=== PATIENT | female | born 1995 | race Caucasian/White ===

== ENCOUNTER 2017-03-08 16:29 | Inpatient (IN) | payer OTHER ==
[2017-03-08 17:30] LABS: % IMMATURE GRANULYOCYTES 0.4 % (0.0-1.1); ABSOLUTE IMMATURE GRANULOCYTES 0.01 10^3/uL (0.00-0.10); ADD DIFF? NO; ADD MORPH? NO; ADD SCAN? NO; ATYPICAL LYMPHOCYTE FLAG 80 (0-99); FRAGMENT RBC FLAG 0 (0-99); HEMOGLOBIN 15.9 g/dL (12.6-16.3); LEFT SHIFT FLG 0 (0-99); LIPEMIA HEMOLYSIS FLAG 90 (0-99); MEAN CELL HEMOGLOBIN 31.9 pg (27.9-34.1); MEAN CELL HEMOGLOBIN CONCENTR. 35.3 g/dL (32.4-36.7); MEAN CELL VOLUME 90.4 fL (81.5-99.8); MEAN PLATELET VOLUME 9.8 fL (8.7-11.7); PLATELET CLUMPS FLAG 0 (0-99); PLATELET COUNT 120 10^3/uL (150-400); RED BLOOD CELL COUNT 4.98 10^6/uL (4.18-5.33); RED CELL DISTRIBUTION WIDTH 11.6 % (11.5-15.2)
[2017-03-08 17:33] LABS: ANION GAP 14 mEq/L (8-16); CALCIUM 9.4 mg/dL (8.5-10.4); CARBON DIOXIDE 20 mEq/l (22-31); CHLORIDE 105 mEq/L (97-110); CREATININE 0.9 mg/dL (0.6-1.0); GLOMERULAR FILTRATION RATE > 60; GLUCOSE 120 mg/dL (70-100); POTASSIUM 3.5 mEq/L (3.5-5.2); SODIUM 139 mEq/L (134-144)
[2017-03-08] MEDS ORDERED: NS 1,000 ML IV ONE ×3 (17:43→23:23)
[2017-03-08] MEDS ORDERED: ONDANSETRON 4 MG/2 ML VIAL IVP ONE ×2 (17:44→20:05)
[2017-03-08] MEDS ORDERED: FAMOTIDINE 20 MG/2 ML SDV IVP ONE (17:44)
[2017-03-08 17:49] LABS: INR 1.15 (0.83-1.16); PROTIME(PATIENT) 14.6 SEC (12.0-15.0)
[2017-03-08 17:50] LABS: APTT 34.1 SEC (23.0-38.0)
--- NOTE | 2017-03-08 17:55 | EDPHY ---
H & P Time Seen by Provider: 03/08/17 17:07 HPI/ROS: CHIEF COMPLAINT: Fever, myalgias, diarrhea HISTORY OF PRESENT ILLNESS: 22-year-old female presents to the emergency department by private vehicle complaining of diffuse myalgias and high fever. Patient was in after,, specifically [place] and [facility] and return home on March 04, just 4 days ago. While she was in [place], she had some diarrhea. This has continued she had a mild upset stomach. She felt like she was feeling better and then developed sore throat, nasal congestion and high fever yesterday. She had a T-max today of 104 degrees. She denies neck stiffness. She has a mild headache. She is specifically complaining of low back discomfort. She denies rash. Denies any reported trauma. She was traveling with her mother who has no symptoms. Patient had multiple which she thinks were mosquito bites. No other rash. She did not receive any shots or take any prophylactic medications. Patient has an IUD and denies . Unsure of her last menstrual period. REVIEW OF SYSTEMS: Constitutional: Fever, chills as above Eyes: No double or blurry vision. ENT: ore throat. Respiratory: No cough, no shortness of breath. Cardiac: No chest pain. Gastrointestinal: Diarrhea. No abdominal pain or vomiting. Genitourinary: Mild dysuria. No urgency or frequency with urination. No hematuria. Musculoskeletal: Low back pain. No neck pain. Skin: No rashes. Neurological: Very mild headache. Past Medical/Surgical History: IUD Social History: Single Smoking Status: Never smoked Physical Exam: General Appearance: Alert, no distress. Temperature 37.5degrees, heart rate 139, respirations 20, blood pressure 114/85, 95% on room air. Eyes: Pupils equal and round. Extraocular motions are all intact. ENT: Mouth: Mucous membranes moist. Respiratory: No wheezing, rhonchi, or rales, lungs are clear to auscultation. Cardiovascular: Regular rate and rhythm. Gastrointestinal: Abdomen is soft and nontender, no masses, no rebound or guarding, bowel sounds normal. No CVA tenderness bilaterally. Neurological: Alert and oriented x 3, cranial nerves II through XII grossly intact Skin: Warm and dry, no rashes. Musculoskeletal: Nontender to palpate along the cervical, thoracic or lumbar spine. Neck is supple. No nuchal rigidity. Extremities: Full range of motion and no peripheral edema. Psychiatric: Patient is oriented X 3, there is no agitation. Constitutional: Initial Vital Signs Temperature (C) 37.5 C 03/08/17 16:33 Heart Rate 139 H 03/08/17 16:33 Respiratory Rate 20 03/08/17 16:33 Blood Pressure 114/85 H 03/08/17 16:33 O2 Sat (%) 95 03/08/17 16:33 O2 Delivery Mode Room Air Allergies/Adverse Reactions: amoxicillin Allergy (Verified 03/08/17 16:33) Home Medications: Medication Instructions Recorded NK [No Known Home Meds] 03/08/17 Medical Decision Making ED Course/Re-evaluation: 22-year-old female presents to the emergency department with fever, general malaise and myalgias after traveling from [place] laboratory studies have been drawn. I spoke with Dr. Madi Harden, on-call infectious disease. Patient had a positive malaria smear. Dr. Madi Harden suggest Malarone 4 tablets to be given now and will continue this over the next 3 days. The patient continued to have fever and general malaise. She received IV normal saline and was still feeling nauseous and having episodes of diarrhea. Patient will be admitted to the hospitalist, Dr. Jet Salomon. Blood cultures are pending. The case was discussed with Dr. Michael Dos Santos, secondary supervising physician , who did not directly evaluate the patient but agrees with treatment and plan. Differential Diagnosis: Including but not limited to malaria, meningitis, dengue fever, typhoid fever, viral illness, sepsis - Data Points Laboratory Results: Laboratory Results 03/08/17 17:01 03/08/17 17:01 03/08/17 03/08/17 03/08/17 19:00 17:45 17:30 WBC RBC Hgb Hct MCV MCH MCHC RDW Plt Count MPV Neut % (Auto) Lymph % (Auto) Shannon % (Auto) Eos % (Auto) Baso % (Auto) Nucleat RBC Rel Count Absolute Neuts (auto) Absolute Lymphs (auto) Absolute Monos (auto) Absolute Eos (auto) Absolute Basos (auto) Absolute Nucleated RBC Immature Gran % Immature Gran # PT INR APTT VBG Lactic Acid 1.0 mmol/L mmol/L (0.7-2.1) Sodium Potassium Chloride Carbon Dioxide Anion Gap BUN Creatinine Estimated GFR Glucose Calcium Total Bilirubin Conjugated Bilirubin Unconjugated Bilirubin AST ALT Alkaline Phosphatase Total Protein Albumin Beta HCG, Qual Urine Color YELLOW Urine Appearance MODERATELY TURBID Urine pH 6.0 (5.0-7.5) Ur Specific [place] 1.004 (1.002-1.030) Urine Protein NEGATIVE (NEGATIVE) Urine Ketones TRACE H (NEGATIVE) Urine Blood 1+ H (NEGATIVE) Urine Nitrate NEGATIVE (NEGATIVE) Urine Bilirubin NEGATIVE (NEGATIVE) Urine Urobilinogen NEGATIVE EU EU (0.2-1.0) Ur Leukocyte Esterase TRACE H (NEGATIVE) Urine RBC 3-5 /hpf H /hpf (0-3) Urine WBC 3-5 /hpf H /hpf (0-3) Ur Epithelial Cells 2+ /lpf H /lpf (NONE-1+) Urine Bacteria 1+ /hpf H /hpf (NONE SEEN) Urine Mucus TRACE /lpf /lpf (NONE-1+) Urine Glucose NEGATIVE (NEGATIVE) Nasal Influenza A PCR NEGATIVE FOR FLU A (NEGATIVE) Nasal Influenza B PCR NEGATIVE FOR FLU B (NEGATIVE) Malaria Smear Malaria Sm Path Review 03/08/17 03/08/17 03/08/17 17:10 17:01 17:01 WBC RBC Hgb Hct MCV MCH MCHC RDW Plt Count MPV Neut % (Auto) Lymph % (Auto) Shannon % (Auto) Eos % (Auto) Baso % (Auto) Nucleat RBC Rel Count Absolute Neuts (auto) Absolute Lymphs (auto) Absolute Monos (auto) Absolute Eos (auto) Absolute Basos (auto) Absolute Nucleated RBC Immature Gran % Immature Gran # PT 14.6 SEC SEC (12.0-15.0) INR 1.15 (0.83-1.16) APTT 34.1 SEC SEC (23.0-38.0) VBG Lactic Acid Sodium Potassium Chloride Carbon Dioxide Anion Gap BUN Creatinine Estimated GFR Glucose Calcium Total Bilirubin Conjugated Bilirubin Unconjugated Bilirubin AST ALT Alkaline Phosphatase Total Protein Albumin Beta HCG, Qual NEGATIVE Urine Color Urine Appearance Urine pH Ur Specific [place] Urine Protein Urine Ketones Urine Blood Urine Nitrate Urine Bilirubin Urine Urobilinogen Ur Leukocyte Esterase Urine RBC Urine WBC Ur Epithelial Cells Urine Bacteria Urine Mucus Urine Glucose Nasal Influenza A PCR Nasal Influenza B PCR Malaria Smear POSITIVE H (NONE SEEN) Malaria Sm Path Review Pending 03/08/17 03/08/17 17:01 17:01 WBC 2.85 10^3/uL L 10^3/uL (3.80-9.50) RBC 4.98 10^6/uL 10^6/uL (4.18-5.33) Hgb 15.9 g/dL g/dL (12.6-16.3) Hct 45.0 % % (38.0-47.0) MCV 90.4 fL fL (81.5-99.8) MCH 31.9 pg pg (27.9-34.1) MCHC 35.3 g/dL g/dL (32.4-36.7) RDW 11.6 % % (11.5-15.2) Plt Count 120 10^3/uL L 10^3/uL (150-400) MPV 9.8 fL fL (8.7-11.7) Neut % (Auto) 85.9 % H % (39.3-74.2) Lymph % (Auto) 9.1 % L % (15.0-45.0) Shannon % (Auto) 3.5 % L % (4.5-13.0) Eos % (Auto) 0.4 % L % (0.6-7.6) Baso % (Auto) 0.7 % % (0.3-1.7) Nucleat RBC Rel Count 0.0 % % (0.0-0.2) Absolute Neuts (auto) 2.45 10^3/uL 10^3/uL (1.70-6.50) Absolute Lymphs (auto) 0.26 10^3/uL L 10^3/uL (1.00-3.00) Absolute Monos (auto) 0.10 10^3/uL L 10^3/uL (0.30-0.80) Absolute Eos (auto) 0.01 10^3/uL L 10^3/uL (0.03-0.40) Absolute Basos (auto) 0.02 10^3/uL 10^3/uL (0.02-0.10) Absolute Nucleated RBC 0.00 10^3/uL 10^3/uL (0-0.01) Immature Gran % 0.4 % % (0.0-1.1) Immature Gran # 0.01 10^3/uL 10^3/uL (0.00-0.10) PT INR APTT VBG Lactic Acid Sodium 139 mEq/L mEq/L (134-144) Potassium 3.5 mEq/L mEq/L (3.5-5.2) Chloride 105 mEq/L mEq/L (97-110) Carbon Dioxide 20 mEq/l L mEq/l (22-31) Anion Gap 14 mEq/L mEq/L (8-16) BUN 16 mg/dL mg/dL (7-23) Creatinine 0.9 mg/dL mg/dL (0.6-1.0) Estimated GFR > 60 Glucose 120 mg/dL H mg/dL (70-100) Calcium 9.4 mg/dL mg/dL (8.5-10.4) Total Bilirubin 1.1 mg/dL mg/dL (0.1-1.4) Conjugated Bilirubin 0.7 mg/dL H mg/dL (0.0-0.5) Unconjugated Bilirubin 0.4 mg/dL mg/dL (0.0-1.1) AST 197 IU/L H IU/L (14-46) ALT 168 IU/L H IU/L (9-52) Alkaline Phosphatase 239 IU/L H IU/L (38-126) Total Protein 7.8 g/dL g/dL (6.3-8.2) Albumin 4.5 g/dL g/dL (3.5-5.0) Beta HCG, Qual Urine Color Urine Appearance Urine pH Ur Specific [place] Urine Protein Urine Ketones Urine Blood Urine Nitrate Urine Bilirubin Urine Urobilinogen Ur Leukocyte Esterase Urine RBC Urine WBC Ur Epithelial Cells Urine Bacteria Urine Mucus Urine Glucose Nasal Influenza A PCR Nasal Influenza B PCR Malaria Smear Malaria Sm Path Review Medications Given: Sodium Chloride (Ns) 1,000 mls @ 125 mls/hr IV CONT VIOLETTA Stop: 09/04/17 20:44 Last Admin: 03/08/17 22:29 Dose: 1,000 mls Oxycodone HCl (Oxycodone Ir) 5 - 10 mg PO Q3HRS PRN PRN Reason: Pain, Severe Able to Take PO Stop: 03/18/17 20:36 Last Admin: 03/08/17 21:11 Dose: 5 mg Discontinued Medications Atovaquone/Proguanil (Malarone 250-100 Mg Tablet) 4 each PO EDNOW ONE PRN Reason: Protocol Stop: 03/08/17 20:03 Last Admin: 03/08/17 21:12 Dose: 4 each Famotidine (Pepcid) 20 mg IVP EDNOW ONE Stop: 03/08/17 17:45 Last Admin: 03/08/17 17:48 Dose: 20 mg Sodium Chloride (Ns) 1,000 mls @ 0 mls/hr IV ONCE ONE PRN Reason: Wide Open Stop: 03/08/17 17:44 Last Admin: 03/08/17 17:48 Dose: 1,000 mls Sodium Chloride (Ns) 1,000 mls @ 0 mls/hr IV ONCE ONE PRN Reason: Wide Open Stop: 03/08/17 20:04 Last Admin: 03/08/17 21:13 Dose: 1,000 mls Ketorolac Tromethamine (Toradol) 30 mg IVP EDNOW ONE Stop: 03/08/17 20:04 Last Admin: 03/08/17 21:14 Dose: 30 mg Ondansetron HCl (Zofran) 4 mg IVP EDNOW ONE Stop: 03/08/17 17:45 Last Admin: 03/08/17 17:47 Dose: 4 mg Ondansetron HCl (Zofran) 4 mg IVP EDNOW ONE Stop: 03/08/17 20:06 Last Admin: 03/08/17 21:12 Dose: 4 mg Departure - Departure Disposition: [facility] Inpatient Acute Clinical Impression: Malaria Condition: Fair
[2017-03-08 18:40] LABS: MALARIAL PREP POSITIVE (NONE SEEN)
[2017-03-08 19:06] LABS: COLOR YELLOW; LEUKOCYTE ESTERASE,URINE TRACE (NEGATIVE); NITRITE,URINE NEGATIVE (NEGATIVE)
[2017-03-08 19:11] LABS: BACTERIA 1+ /hpf (NONE SEEN); MUCUS TRACE /lpf (NONE-1+)
[2017-03-08 19:14] LABS: ALANINE AMINOTRANSFERASE 168 IU/L (9-52); ALBUMIN 4.5 g/dL (3.5-5.0); ALKALINE PHOSPHATASE 239 IU/L (38-126); ASPARTATE AMINOTRANSFERASE 197 IU/L (14-46); BILIRUBIN,TOTAL 1.1 mg/dL (0.1-1.4); BILIRUBIN-CONJUGATED 0.7 mg/dL (0.0-0.5); BILIRUBIN-UNCONJUGATED 0.4 mg/dL (0.0-1.1); TOTAL PROTEIN 7.8 g/dL (6.3-8.2)
[2017-03-08] MEDS ORDERED: MALARONE 250/100 MG TAB PO ONE (20:02)
[2017-03-08] MEDS ORDERED: KETOROLAC 30 MG/1 ML SDV IVP ONE (20:03)
[2017-03-08] MEDS ORDERED: ONDANSETRON DISINTEGRATING 4 MG TAB PO PRN (20:37)
[2017-03-08] MEDS ORDERED: LORazepam 0.5 MG TAB PO PRN (20:37)
[2017-03-08] MEDS ORDERED: ZOLPIDEM TARTRATE 5 MG TAB PO PRN (20:37)
[2017-03-08] MEDS: oxyCODONE IR 5 MG TAB PO PRN (21:11)
[2017-03-08] MEDS: NS 1,000 ML IV SCH (22:29)
--- NOTE | 2017-03-09 00:25 | GHP ---
[f rep st] HISTORY AND PHYSICAL DATE OF ADMISSION: 03/08/2017 CHIEF COMPLAINT: Fevers and aches. HISTORY: This is a 22-year-old female with no real past medical history, presenting with several day s of malaise, fever, and diffuse myalgias and arthralgias. This occurs in the setting of recently re turning from a trip to [facility] and [facility] which she returned from 4 days ago. She initially had what she thought was an upper respiratory infection with sore throat, nasal congestion, but then developed fevers that continued to increase. She had a T-max of a 104 today. She has not had real significant neck pain or headache. She does have generalized aches and pains pretty much everywhere, however. She has not had any rash. She did have some diarrhea in [place], but that has resolved. S he was not on any prophylactic medication in [place] and did have multiple mosquito bites while over t here. She has never had similar symptoms in the past. PAST MEDICAL HISTORY: None. PAST SURGICAL HISTORY: Denies. FAMILY HISTORY: Denies any significant illnesses in the family. SOCIAL HISTORY: Patient is a nonsmoker. Drinks occasionally. Denies drug use. HOME MEDICATIONS: None. ALLERGIES: Amoxicillin. PHYSICAL EXAMINATION: VITAL SIGNS: BP 99/58, heart rate 125, respiratory rate 16, O2 sat is 96% on room air, temperature is 37.7. GENERAL APPEARANCE: This is an uncomfortable-appearing young female. She is awake and alert. She is well nourished, well developed. EYES: Anicteric. HENT: Orophary nx clear. CARDIOVASCULAR: Tachy, regular, no MRG. PULMONARY: CTA bilaterally. ABDOMEN: Soft, no ntender. Bowel sounds are present. EXTREMITIES: No clubbing, cyanosis, or edema. SKIN: Warm, dry , well-perfused. NEURO/PSYCH: Oriented, appropriate, pleasant. CLINICAL DATA: Labs are remarkable for total bilirubin of 1.1, AST of 197, ALT of 168, alk phos of 2 39. Malaria smear is positive. White blood cell count of 2.85, platelets of 120. Coags are normal. Lactic acid is 1. ASSESSMENT/PLANS: A 22-year-old female presenting after recent travel to [place] with febrile illness , found to be secondary to malaria. 1. Malaria occurring after recent travel to [place]. ID has been consulted and will see patient in t he morning but recommend starting Malarone 4 tablets daily, which has been initiated. Otherwise, rosamaria l treat symptomatically with Tylenol and ibuprofen as needed for fever and pain. If pain continues t o be worse, we will add opiate pain medication as needed. 2. Transaminitis, likely secondary to malaria. Relatively mild at this point with essentially jess l bilirubin and mildly elevated alkaline phosphatase. We will continue to trend. 3. Leukopenia, thrombocytopenia. Again, this is likely secondary to malaria and both are relatively mild. We will continue to trend while inhouse. 4. Tachycardia, being driven both by fever and volume depletion. We will continue volume resuscitat ion. On the monitor, does appear to be sinus rhythm. 5. Disposition: Inpatient status. Suspect patient will need greater than 48-hour stay for evaluati on and management of above given unstable vital signs and severity of presenting complaints. /[id number]/MODL
--- NOTE | 2017-03-09 01:25 | PDMN ---
Medical Necessity Medical necessity: C/M review: Pt. meets INPT criteria under MCG Systemic or infectious condition GRG; Acute and persistent malaria, 104 T max, tachycardia, HR 139, 102, 115, transaminitis, conjugated bilirubin 0.7, AST 197, ALT 168, Alk phos 239, leukopenia WBC 2.85, thrombocytopenia, platelet count 120, volume depletion requiring ongoing IV fluids, initiation of oral Malarone, comorbid recent travel to [place], [facility], multiple mosquito bites there, no prophylactic medication in [place]. anticipates > 2 MN LOS for ongoing med nec for eval and TX of above.
[2017-03-09] MEDS: ACETAMINOPHEN 325 MG TAB PO PRN ×4 (01:39→16:22)
[2017-03-09] MEDS: ONDANSETRON 4 MG/2 ML VIAL IVP PRN ×4 (01:59→22:15)
[2017-03-09 04:47] LABS: % IMMATURE GRANULYOCYTES 0.8 % (0.0-1.1); ABSOLUTE IMMATURE GRANULOCYTES 0.02 10^3/uL (0.00-0.10); ADD DIFF? NO; ADD MORPH? NO; ADD SCAN? YES; FRAGMENT RBC FLAG 0 (0-99); HEMATOCRIT 35.5 % (38.0-47.0); HEMOGLOBIN 12.8 g/dL (12.6-16.3); LEFT SHIFT FLG 20 (0-99); LIPEMIA HEMOLYSIS FLAG 90 (0-99); MEAN CELL HEMOGLOBIN 32.7 pg (27.9-34.1); MEAN CELL HEMOGLOBIN CONCENTR. 36.1 g/dL (32.4-36.7); MEAN CELL VOLUME 90.6 fL (81.5-99.8); MEAN PLATELET VOLUME 9.7 fL (8.7-11.7); PLATELET CLUMPS FLAG 0 (0-99); PLATELET COUNT 61 10^3/uL (150-400); RED BLOOD CELL COUNT 3.92 10^6/uL (4.18-5.33); RED CELL DISTRIBUTION WIDTH 11.7 % (11.5-15.2)
[2017-03-09 04:52] LABS: ATYPICAL LYMPHOCYTE FLAG 140 (0-99)
[2017-03-09] MEDS ORDERED: NS 500 ML IV ONE (04:53)
[2017-03-09 04:58] LABS: ALANINE AMINOTRANSFERASE 112 IU/L (9-52); ALBUMIN 2.3 g/dL (3.5-5.0); ALKALINE PHOSPHATASE 161 IU/L (38-126); ANION GAP 9 mEq/L (8-16); ASPARTATE AMINOTRANSFERASE 97 IU/L (14-46); BILIRUBIN,TOTAL 2.7 mg/dL (0.1-1.4); BILIRUBIN-CONJUGATED 1.7 mg/dL (0.0-0.5); CALCIUM 7.1 mg/dL (8.5-10.4); CARBON DIOXIDE 18 mEq/l (22-31); CHLORIDE 111 mEq/L (97-110); CREATININE 0.6 mg/dL (0.6-1.0); GLOMERULAR FILTRATION RATE > 60; GLUCOSE 111 mg/dL (70-100); POTASSIUM 3.6 mEq/L (3.5-5.2); SODIUM 138 mEq/L (134-144)
[2017-03-09 05:28] LABS: SCAN POSITIVE
[2017-03-09 05:33] LABS: PLATELET ESTIMATE DECREASED (ADEQ); TOXIC VACUOLIZATION PRESENT
[2017-03-09] MEDS: NS 1,000 ML IV SCH (06:07)
[2017-03-09] MEDS: PROMETHAZINE HCL 25 MG/ML INJ IVP PRN ×2 (07:02→13:29)
[2017-03-09] MEDS: HYDROmorphone HCL/NS/PF 0.4 MG/2 ML SYR IVP PRN ×3 (07:05→21:16)
[2017-03-09] MEDS: MALARONE 250/100 MG TAB PO SCH (10:40)
[2017-03-09] MEDS ORDERED: KETOROLAC 15 MG/1 ML SDV IVP ONE (10:53)
[2017-03-09] MEDS ORDERED: IBUPROFEN 600 MG TAB PO PRN (10:53)
--- NOTE | 2017-03-09 10:58 | ASMTCMCOM ---
CM Note CM Note Notes: Pt admitted with malaria, has recently been to [place]. D/W RN. Antiicpate pt will dc home independantly when medically stable. CM available if dc needs arise. Date Signed: 03/09/2017 10:57 AM Electronically Signed By:Kary Chavira RN
--- NOTE | 2017-03-09 12:33 | HOSPPROG ---
Hospitalist Progress Note Assessment/Plan: Malaria - with SIRS criteria and organ dysfunction. -cont Malarone -supportive care, IVF's Hypoxemia - CXR shows pulmonary edema (doubt PNA, no symptoms). She has been dyspneic today. She is intravascularly deplete, but with low albumin, likely some leaky vessels. -Will give albumin / lasix Transaminitis - likely secondary to malaria. Bili up a bit today, but transaminases trending down. Leukopenia / thrombocytopenia - plts dropped to 62 today, likely all due to malarial illness -follow Tachycardia - secondary to SIRS, as above intravascularly deplete, giving Albumin / Lasix, cont maintenance IVF's Full code DVT PPLX - SCD's, pharm c/i with low plts Dispo - cont inpt Subjective: Pt is sleeping, was dyspneic earlier while awake. She awakens and answers questions, but not very engaged, appears ill. Fevers persist. No N/V/ D. No abdominal pain. She aches all over. Objective: Vital Signs Temp Pulse Resp BP Pulse Ox 37.9 C 125 H 16 105/58 L 94 03/09/17 11:29 03/09/17 11:29 03/09/17 11:29 03/09/17 11:29 03/09/17 11:29 Laboratory Results 03/09/17 04:31 03/09/17 04:30 03/08/17 03/09/17 03/10/17 05:59 05:59 05:59 Intake Total 4122 3500 Balance 4122 3500 PT 14.6 SEC (12.0-15.0) 03/08/17 17:10 INR 1.15 (0.83-1.16) 03/08/17 17:10 - Physical Exam Constitutional: no apparent distress Eyes: PERRL Ears, Nose, Mouth, Throat: moist mucous membranes Cardiovascular: regular rate and rhythym Respiratory: no respiratory distress, inspiratory crackles Gastrointestinal: normoactive bowel sounds, soft, non-tender abdomen Skin: warm Musculoskeletal: full muscle strength Neurologic: AAOx3 Psychiatric: interacting appropriately ICD10 Worksheet Patient Problems: Problems Problem Status Onset Malaria Acute
--- NOTE | 2017-03-09 13:32 | GCON ---
[f rep st] CONSULTATION INFECTIOUS DISEASE CONSULTATION REFERRING PHYSICIAN: Jet Salomon MD REASON FOR CONSULTATION: Malaria. HISTORY OF PRESENT ILLNESS: The patient is a 22-year-old female without significant past medical his tory, who I am asked to see in consultation for malaria. The patient recently traveled to [facility] and [facility] for approximately 10 days. She did not take any antimalarial prophylaxis while abr oad. She did sustain multiple mosquito bites. The patient did go on safari in [facility] while in [facility]. On , the patient developed the abrupt onset of fever and rigors. Thi s was associated with headache, malaise, myalgias and arthralgias. She had concomitant nausea and de creased oral intake. She did have diarrhea while traveling, but has not had this subsequently. She denies any skin rash. This a.m. she also complains of chest tightness and shortness of breath. Upon presentation yesterday, the patient was noted to have leukopenia and thrombocytopenia with transamin itis. Malaria smear was performed and returned positive with percent parasitemia of approximately 0. 4%. The patient has been started on Malarone 4 p.o. daily last evening. She did not note any tick b ites while abroad. She did not have any animal exposure other than dogs. No unusual dietary intake. Given the above findings, I am now asked to assist in the patient's ongoing management. PAST MEDICAL HISTORY: Unremarkable. PAST SURGICAL HISTORY: Unremarkable. CURRENT MEDICATIONS: Malarone 250/100 four p.o. daily, Oxy IR as needed for pain, Phenergan and Zofr an as needed for nausea. ALLERGIES: Amoxicillin associated with rash. SOCIAL HISTORY: Recent travel history as outlined above. No tobacco use with occasional alcohol int [place]. FAMILY HISTORY: Noncontributory other than family members who traveled with her to [place] are not il l. REVIEW OF SYSTEMS: Outside of that noted in the HPI, remainder of 10 system review is unremarkable. PHYSICAL EXAMINATION: VITAL SIGNS: Temperature maximum 39.4, temperature current 37.9, heart rate 1 25, respiratory rate 16, oxygen saturation 94% on room air, blood pressure 105/58. GENERAL: The pat ient is ill appearing without signs of toxicity. HEENT: There is mild periorbital edema. There is no scleral icterus, conjunctival injection, or conjunctival petechiae. Oropharynx shows dry mucous m embranes. No thrush is present. No tenderness over the frontal, maxillary, or mastoid area. NECK: Supple without palpable lymphadenopathy or thyromegaly. CHEST: There are crackles present at the r ight base. The respiratory effort is mildly increased. CARDIOVASCULAR: Tachycardic without murmurs , gallops, or rubs. ABDOMEN: Soft, nontender, nondistended. There is no palpable organomegaly. Maco wel sounds are present. MUSCULOSKELETAL: There is no cyanosis, clubbing, or edema. SKIN: No rash is present. No stigmata of endocarditis. The skin is diffusely warm to palpation. NEUROLOGIC: The patient is sleepy, but interacts appropriately with the examiner. Cranial nerves 2-12 are grossly i ntact. Sensation is grossly intact. Muscle tone and bulk are normal. LYMPHATICS: No cervical or s upraclavicular nodes palpable. LABORATORY DATA: White blood cell count 2.6, hematocrit 35.5, platelets 61, neutrophils 89%; bands 4 6%. Serum creatinine is 0.6, AST 97, ALT 112, alkaline phosphatase 161, bilirubin 2.7 (conjugated 1. 7), albumin 2.3, beta HCG is negative. Urinalysis shows trace ketones, protein negative, 1+ blood wi th 3-5 red blood cells present; urobilinogen and bilirubin are negative. Flu swab by PCR is negative . Malaria smear, which is reviewed by me with Pathology today, shows evidence of ring forms within r ed blood cells; most suggestive of P falciparum. Parasitemia estimated at 0.4%. Blood cultures x2 s ets are pending. Glucose is 111 and creatinine 0.6. IMPRESSION: 1. Malaria: Clinical presentation, and laboratory findings, as well as positive blood smear all com patible with malaria. 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 Given the presence of crackles in the right base, we will obtain chest x-ray to ens ure no evidence of pulmonary edema or pneumonia. We will repeat peripheral blood smear to see if par asitemia is decreasing. We will also obtain malaria PCR for speciation. We will repeat serum venous lactate. We will continue to monitor for any signs or symptoms suggestive of evolution to severe di sease. RECOMMENDATIONS: 1. Malarone 4 p.o. daily x3 days. 2. Repeat peripheral blood smear to assess for clearing of parasitemia. 3. Malaria PCR for speciation. 4. Follow up blood cultures as available. 5. Chest x-ray and serum lactate. 6. Supportive care with IV rehydration and treatment of fever with acetaminophen or ibuprofen. 7. Thank you for this consultation. We will continue to follow the patient with you. /[id number]/MODL
[2017-03-09 14:08] LABS: MALARIAL PREP POSITIVE (NONE SEEN)
[2017-03-09 14:12] LABS: LACTATE DEHYDROGENASE 1001 IU/L (313-618)
[2017-03-09] MEDS ORDERED: FUROSEMIDE 20 MG/2 ML VIAL IVP ONE (14:17)
[2017-03-09] MEDS ORDERED: ALBUMIN 25% 100 ML IV ONE (14:29)
[2017-03-09] MEDS ORDERED: ZOLPIDEM TARTRATE 5 MG TAB PO PRN (14:36)
--- NOTE | 2017-03-09 19:41 | PCMIDPN ---
Assessment/Plan: Assessment/Plan (addendum to consultation): * Malaria: Repeat peripheral blood smear shows 1.5% parasitemia. Suspect this increase may represent natural evolution of disease process as only had received Malarone 15 hours earlier. Does have some suggestion of edema on chest x-ray. Will transfer to Step-Down Unit. Has received Lasix and albumin. Have asked pharmacy to inquire locally with other hospitals regarding availability of quinidine in event she has progressive disease which would necessitate IV therapy. Plan repeat peripheral blood smear to reassess parasitemia and chest x-ray in a.m.. Reviewed with hospital service and director staffing. 03/09/17 19:39 Objective: Vital Signs Temp Pulse Resp BP Pulse Ox 37.5 C 120 H 28 H 106/60 93 03/09/17 17:45 03/09/17 17:45 03/09/17 17:45 03/09/17 17:45 03/09/17 17:45 Laboratory Results 03/09/17 04:31 03/09/17 04:30 03/08/17 03/09/17 03/10/17 05:59 05:59 05:59 Intake Total 4122 9154 Output Total 2446 Balance 4122 1974 ICD10 Worksheet Patient Problems: Problems Problem Status Onset Malaria Acute
[2017-03-09] MEDS ORDERED: BENZOCAINE UNIT DOSE SPRAY HURRICAINE MM PRN (21:47)
[2017-03-10] MEDS: ACETAMINOPHEN 325 MG TAB PO PRN (00:25)
[2017-03-10] MEDS: oxyCODONE IR 5 MG TAB PO PRN (01:00)
[2017-03-10 06:03] LABS: % IMMATURE GRANULYOCYTES 0.8 % (0.0-1.1); ABSOLUTE IMMATURE GRANULOCYTES 0.02 10^3/uL (0.00-0.10); ADD DIFF? NO; ADD MORPH? NO; ADD SCAN? YES; FRAGMENT RBC FLAG 0 (0-99); HEMATOCRIT 34.8 % (38.0-47.0); HEMOGLOBIN 12.5 g/dL (12.6-16.3); LEFT SHIFT FLG 40 (0-99); LIPEMIA HEMOLYSIS FLAG 90 (0-99); MEAN CELL HEMOGLOBIN 32.2 pg (27.9-34.1); MEAN CELL HEMOGLOBIN CONCENTR. 35.9 g/dL (32.4-36.7); MEAN CELL VOLUME 89.7 fL (81.5-99.8); MEAN PLATELET VOLUME 11.4 fL (8.7-11.7); PLATELET CLUMPS FLAG 10 (0-99); RED BLOOD CELL COUNT 3.88 10^6/uL (4.18-5.33); RED CELL DISTRIBUTION WIDTH 12.1 % (11.5-15.2)
[2017-03-10 06:05] LABS: ATYPICAL LYMPHOCYTE FLAG 300 (0-99)
[2017-03-10 06:09] LABS: PLATELET COUNT 27 10^3/uL (150-400)
[2017-03-10 06:20] LABS: ALANINE AMINOTRANSFERASE 91 IU/L (9-52); ALBUMIN 2.5 g/dL (3.5-5.0); ALKALINE PHOSPHATASE 166 IU/L (38-126); ANION GAP 9 mEq/L (8-16); ASPARTATE AMINOTRANSFERASE 80 IU/L (14-46); BILIRUBIN,TOTAL 5.9 mg/dL (0.1-1.4); CALCIUM 6.9 mg/dL (8.5-10.4); CARBON DIOXIDE 20 mEq/l (22-31); CHLORIDE 110 mEq/L (97-110); CREATININE 0.7 mg/dL (0.6-1.0); GLOMERULAR FILTRATION RATE > 60; GLUCOSE 66 mg/dL (70-100); SODIUM 139 mEq/L (134-144); TOTAL PROTEIN 4.7 g/dL (6.3-8.2)
[2017-03-10 06:30] LABS: BILIRUBIN-CONJUGATED 5.1 mg/dL (0.0-0.5); BILIRUBIN-UNCONJUGATED 0.8 mg/dL (0.0-1.1)
[2017-03-10] MEDS ORDERED: PROTOCOL POTASSIUM 1 DOSE MISC PRN (06:36)
[2017-03-10] MEDS ORDERED: PROTOCOL MAGNESIUM 1 DOSE IV PRN (06:36)
[2017-03-10] MEDS ORDERED: D50W 25 GM/50 ML SYR IVP ONE (06:40)
[2017-03-10 06:43] LABS: SCAN POSITIVE
[2017-03-10 06:50] LABS: ECHINOCYTES 1+; PLATELET ESTIMATE DECREASED (ADEQ); TOXIC VACUOLIZATION PRESENT
[2017-03-10 07:35] LABS: MAGNESIUM 1.4 mg/dL (1.6-2.3)
[2017-03-10 07:44] LABS: MALARIAL PREP POSITIVE (NONE SEEN)
[2017-03-10 08:27] LABS: PROCALCITONIN 0.59 ng/mL (0.02-0.10)
--- NOTE | 2017-03-10 08:27 | HOSPPROG ---
Hospitalist Progress Note Assessment/Plan: Malaria - with SIRS criteria and multi-organ dysfunction including bone marrow suppression, hepatic injury, and pulmonary edema. No fevers x21 hrs. -cont Malarone -supportive care Acute hypoxemic respiratory failure - Increased O2 requirement (4 LPM currently ) and increased dyspnea overnight. CXR this am personally reviewed and interpreted, increased pulmonary edema vs consolidation. She is intravascularly deplete, but with low albumin and malaria, likely leaky vessels. -stat CT chest noncon to better determine if this is fluid or infection- looks infectious, Ceftriaxone and Doxy started by ID -PCT elevated at 0.57 -echo done this am, results pending -check abg now -she may benefit from bipap if respiratory status worsens -discussed with pulm Transaminitis - likely secondary to malaria. Bili on the rise, but transaminases stable. -follow Leukopenia / thrombocytopenia - plts dropped to 27 today, likely all due to malarial illness. No e/o bleeding -transfuse if any evidence of bleeding or if plts cont to trend down -follow Tachycardia - secondary to SIRS, as above intravascularly deplete, giving Albumin / Lasix Hypokalemia - check mag, electrolyte protocol, follow Full code DVT PPLX - SCD's, pharm c/i with low plts Dispo - cont inpt, transfer to ICU, pt is high risk and critically ill, condition guarded Subjective: Pt remains very fatigued and ill. She appears uncomfortable and is not very communicative. She is SOB. No fevers overnight, but increased dyspnea and O2 requirement. She continues to ache all over. Objective: Vital Signs Temp Pulse Resp BP Pulse Ox 37.7 C 120 H 26 H 114/67 95 03/10/17 05:30 03/10/17 05:30 03/10/17 05:30 03/10/17 05:30 03/10/17 05:30 Laboratory Results 03/10/17 05:45 03/10/17 05:45 03/09/17 03/10/17 03/11/17 05:59 05:59 05:59 Intake Total 4122 7956 Output Total 3500 Balance 4122 4456 PT 14.6 SEC (12.0-15.0) 03/08/17 17:10 INR 1.15 (0.83-1.16) 10/27/17 17:10 - Physical Exam Constitutional: uncomfortable Eyes: PERRL Ears, Nose, Mouth, Throat: dry mucous membranes Cardiovascular: tachycardia Respiratory: inspiratory crackles, respiratory distress Gastrointestinal: normoactive bowel sounds, soft, non-tender abdomen Skin: warm Musculoskeletal: generalized weakness Neurologic: AAOx3 Psychiatric: interacting appropriately ICD10 Worksheet Patient Problems: Problems Problem Status Onset Malaria Acute
[2017-03-10] MEDS ORDERED: D5W 1/2 NS W/ 20 KCl/L 1,000 ML IV SCH (08:45)
[2017-03-10] MEDS ORDERED: DOXYCYCLINE INJ 100 MG in NS 250 ML IV SCH (09:45)
[2017-03-10] MEDS: MALARONE 250/100 MG TAB PO SCH (09:51)
--- NOTE | 2017-03-10 09:54 | GCON ---
[f rep st] CONSULTATION BICYCLE SERVICE TECHNICIAN CONSULTATION REASON FOR ADMISSION: Acute malaria. HISTORY OF PRESENT ILLNESS: The patient is a 22-year-old, white female without past medical history. She presented emergency room with complaints of several days of malaise which was associated with m uscle pains and arthralgias. She returned from [facility] and [facility] 4 days prior. She had fev ers. No evidence of rash at the time. She was subsequently admitted to the hospital with acute ana cristina valentine. She was begun on Malarone and admitted to the floor. She also had elevated liver function test s. She was initially admitted on March 08. On March 09, she had worsened in her condition, was subsequently transferred to SDU and now is in intensive care unit. The patient is currently markedly somnolent, unable to provide any history. All history is gleaned from the medical record. PAST MEDICAL HISTORY: None. PAST SURGICAL HISTORY: None. ALLERGIES: To amoxicillin and red dye. SOCIAL HISTORY: No history of tobacco use. Infrequent alcohol use. She has excellent family suppor t. MEDICATION AT HOME: None. PHYSICAL EXAMINATION: VITAL SIGNS: Blood pressure is 128/72, pulse is now 131, respirations 26, tem perature is 37, oxygen saturation is 89% on 4 L. GENERAL: She is a well-developed, well-nourished, 22-year-old, white female who is somnolent and on supplemental oxygen. HEENT: Eyes are PERRLA, EOMI . Throat shows no erythema or tonsillar hypertrophy. NECK: Supple. There is no cervical adenopath y. HEART: Regular rate and rhythm but tachycardic. LUNGS: Bibasilar crackles. There are shallow breaths. ABDOMEN: Soft, nontender. Bowel sounds are present in all 4 quadrants. EXTREMITIES: No clubbing, cyanosis, or edema. LABORATORIES: White count 2.6, hemoglobin 12, hematocrit 34, platelet count 227. Sodium 139, potass ium 3.0, chloride 110, CO2 20, BUN 6, creatinine 0.7, glucose is 66. AST is 80, down from 197. ALT is 91, down from 168, alkaline phosphatase is 166. BNP is mildly elevated at 665. Urinalysis: PH 6 , specific gravity 1.004, trace leukocyte esterase, 3-5 RBCs. Influenza A and B are negative. Malar ia smear is positive. IMAGING: Chest x-ray shows worsening pneumonia and some evidence of pulmonary edema. IMPRESSION: 1. Malaria. 2. Pneumonia. 3. Acute respiratory failure. This is hypoxemic secondary to pneumonia and malaria. 4. Elevated liver function tests. 5. Thrombocytopenia as well as leukopenia. 6. Tachycardia. RECOMMENDATIONS: 1. Agree with transfer to intensive care unit. 2. Agree with CT scan of the chest as well an echocardiogram. 3. Antibiotic coverage per Infectious Disease. 4. Close cardiovascular monitoring. 5. We will check an ABG. 6. Deep venous thrombosis and pulmonary embolus prophylaxis. 7. Stress ulcer prophylaxis. 8. Anti-malarial drugs per Infectious Disease. 9. /[id number]/MODL
[2017-03-10] MEDS ORDERED: cefTRIAXone 2 GM in D5W 50 ML IV SCH (10:00)
[2017-03-10] MEDS ORDERED: ALTEPLASE 2 MG VIAL IVP PRN (10:00)
[2017-03-10 10:12] LABS: BASE EXCESS -5.2 mEq/L (-2.5-2.5); BICARBONATE 19 mEq/L (22-26); MEASURED OXYGEN SATURATION 88 % (92-95); PCO2 32 mmHg (34-38); PO2 53 mmHg (65-75); TCO2 20 mEq/L (23-27)
--- NOTE | 2017-03-10 10:25 | PCMIDPN ---
Assessment/Plan: Assessment/Plan (addendum to consultation): * Malaria: Peripheral blood smear reviewed with pathology showing increased parasitemia estimated at 2.3%.. Temperature improved with worsening thrombocytopenia and increase in bilirubin present. Chest CT most consistent with pneumonia rather than pulmonary edema although some patchy infiltrate present in mid lung goddard which may represent capillary leak. 3rd dose of Malarone provided this a.m.. Unable to obtain quinidine locally with only availability identified by our pharmacy at [facility] - think patient will require transfer in order to receive IV quinidine given increasing parasitemia and clinical/laboratory features consistent with severe malaria ( increased bilirubin, prostration, and possible component of pulmonary edema). * Bilateral lower lobe pneumonia: Will begin ceftriaxone with doxycycline ( will provide activity against atypicals as well as malaria). Obtain respiratory pathogen PCR as she also has sore throat with other consideration being viral etiology such as adenovirus. Pulmonary consultation to be obtain. Continue diuresis as may have component of volume overload as well with receive IV fluid. Time spent, greater than 45 minutes, of which greater than half was spent in education/counseling/coordination of care related to malaria and pneumonia as well as plan of care. ICU nursing staff and family updated. 03/10/17 10:05 03/10/17 11:32 Subjective: Patient complains of dyspnea and headache. Objective: Vital Signs Temp Pulse Resp BP Pulse Ox 37.7 C 131 H 26 H 128/72 H 89 L 03/10/17 08:42 03/10/17 08:42 03/10/17 05:30 03/10/17 08:42 03/10/17 08:42 Laboratory Results 03/10/17 05:45 03/10/17 05:45 03/09/17 03/10/17 03/11/17 05:59 05:59 05:59 Intake Total 4122 7956 Output Total 3500 350 Balance 4122 4456 -350 T 37.7 Malaria smear reviewed with pathology today showing percent parasitemia of 2.3% ; some red blood cells with 2 ring forms Blood cultures x2 no growth CT chest showing bilateral lower lobe consolidation with effusions and patchy infiltrate in mid lung goddard bilaterally - Physical Exam General Appearance: other (Sleepy but arousable (received Ativan overnight)) Respiratory: other (Mildly increased respiratory effort with decreased breath sounds both bases) Neck: supple, No meningismus Cardiac/Chest: tachycardia Extremities: No inflammation Abdomen: non-tender, No distended Neuro/Psych: other (Somnolent but interacts appropriately when questioned) ICD10 Worksheet Patient Problems: Problems Problem Status Onset Malaria Acute
[2017-03-10] MEDS ORDERED: CANN-EASE 2 GM TUBE TP ONE (10:48)
[2017-03-10] MEDS: ONDANSETRON 4 MG/2 ML VIAL IVP PRN (12:31)
[2017-03-10] MEDS ORDERED: MAGNESIUM SULF 1 GM/DEXTROSE 100 ML IV ONE (12:36)
--- NOTE | 2017-03-10 13:21 | GDS ---
[f rep st] DISCHARGE SUMMARY DISCHARGE DIAGNOSES: 1. Severe malaria with multiorgan system involvement. 2. Acute hypoxemic respiratory failure secondary to bilateral lower lobe pneumonia. 3. Systemic inflammatory response syndrome. 4. Transaminitis secondary to malaria. 5. Hyperbilirubinemia. 6. Leukopenia. 7. Thrombocytopenia. Platelets have dropped from 120,000 to 27,000. 8. Hypokalemia. 9. Splenomegaly. CONSULTANTS: Dr. Madi Harden, Infectious Disease. IMAGIN. Chest x-ray, March 09, 2017, showed bilateral lower lobe airspace consolidation, which likely r epresents edema versus pneumonia. 2. Repeat chest x-ray, March 10, 2017, shows increasing bilateral airspace disease. 3. Noncontrast chest CT, March 10, 2017, suggestive of bilateral pneumonia plus or minus pulmonary edema. Splenomegaly is also noted. For details, please see the history and physical dated March 08, 2019. HISTORY OF PRESENT ILLNESS: In brief, the patient is a 22-year-old female who is otherwise healthy. She traveled to [facility], in [place] without malaria prophylaxis, who returned 4 days prior to admission and developed high fevers and diffuse myalgias and arthralgias. She was admitted to the hospital with a positive malaria smea r. HOSPITAL COURSE: The patient was initially admitted to the medical-surgical unit. Infectious Diseas e consult was obtained. She was started on Malarone four tablets daily. She was noted to have assoc iated bone marrow suppression and hepatic injury, as well as SIRS response. Her lactate remained nor mal. On her initial malaria smear, she had 0.4% parasitemia with morphology most consistent with Daphne smodium falciparum. Her second smear showed increased parasitemia to 1.5%. Her third smear, on the day of discharge, again shows increased parasitemia up to 2.3%. Her respiratory status has worsened. She developed increased dyspnea and increased oxygen requiremen t overnight. She is currently requiring 7 L by OxyMask. Tachypneic in the 20s to 30s. She was give n albumin and Lasix yesterday for presumed pulmonary edema suspected to be secondary to leaky capilla ry syndrome in the setting of malaria infection. Chest CT on the day of discharge is more suggestive of a pneumonia process. She was started on high- dose ceftriaxone and doxycycline. She continues to be tachycardic, tachypneic and hypoxic. However, her blood pressure has been stable. Her procalcitonin is elevated at 0.59. Her bilirubin has been on the rise from 1.1-5.9. She has a transaminitis with slight a reduction in her LFTs. Also of conc cheri is worsening thrombocytopenia with her platelets dropping to 27,000 in the setting of splenomegal y. Her multiorgan system dysfunction is likely all secondary to her severe malaria. Given that she is not improved and her condition has worsened after 2 days of Malarone, I discussed the case with lawrence alcocer Infectious Disease specialist, who recommends she now be treated with IV quinidine. This medicatio n is not available in our hospital. Thus, she will be transferred to [facility] where it is conf irmed they have this treatment available. In addition, she had negative influenza, but a blood gas on the morning of discharge showed a pH of 7 .35, a pCO2 of 32 and a PO2 of 53. Although she is critically ill, I do think she is stable for disc harge to a higher level of care where she has treatment available that we cannot provide here. DISPOSITION: The patient is transferred to the [facility]. Our Infectious Dise ase physician has discussed the case with the Critical Care admitting physician as well as Infectious Disease at [facility]. DISCHARGE MEDICATIONS: The patient currently has maintenance fluids with D5 half normal saline and 2 0 of K at 125 an hour. She received her second dose of Malarone this morning. She has not required pressors and has no other IV drips running at the time of discharge. /[id number]/MODL
[2017-03-10] MEDS: POTASSIUM Cl (KCl) 50 ML IV SCH (13:24)
--- NOTE | 2017-03-10 13:30 | ECHO ---
[email or web address] [address] [address] Main: [phone] Fax: Transthoracic Echocardiogram Name: VLADIMIR FELICIANO MR#: [id number] Study Date: 03/10/2017 Study Time: 07:19 AM Date of : 1995 Age: 22 year(s) Height: 167.6 cm (66 in.) Weight: 68.04 kg (150 lb.) BSA: 1.77 m2 Gender: Female Examination: Echo Indication: Pulmonary edema/Malaria Image Quality: Contrast: Requested by: Lola Torres BP: 114 mmHg/67 mmHg Heart Rate: Rhythm: Indication: Pulmonary edema/Malaria Procedure Staff Computer Aide: Zuleima Lan Physician: Gilles Condon Requesting Provider: Conclusions: Normal size left ventricle. Global hypercontractility of the left ventricle. EF is 78 %. No regional wall motion abnormality. Trivial mitral valve regurgitation. Trivial tricuspid valve regurgitation. There are no significant valvular abnormalities. Measurements: Chambers Valvular Assessment AV/MV Valvular Assessment TV/PV Normal Normal Normal Name Value Range Name Value Range Name Value Range Ao Christine (MM): 2.9 cm (2.2 cm-3.7 AV meanP mmHg ( - ) cm) MV E Vmax: 1.00 m/s ( - ) IVSd (2D): 0.8 cm (0.6 cm-1.1 MV A Vmax: 0.89 m/s ( - ) cm) MV E/A: 1.12 ( - ) LVDd (2D): 5.1 cm (3.9 cm-5.3 cm) LVDs (2D): 3.1 cm (2.1 cm-4 cm) LVPWd (2D): 0.6 cm ( - ) LVEF (MOD4): 78 % (>=55 %) Continued Measurements: Chambers Valvular Assessment AV/MV Name Value Name Value LADs: 3.4 cm MV E/E' Septal: 8.50 LADs Lon.9 cm MV E/E' Lateral: 6.50 LA Area: 16.8 cm2 Patient: VLADIMIR FELICIANO Study Date: 03/10/2017 Page 1 of 2 07:19 AM Additional Vessels Name Value Ao Ascendin.6 cm Findings: Left Ventricle: Normal size left ventricle. No LV hypertrophy. Global hypercontractility of the left ventricle. EF is 78 %. No regional wall motion abnormality. Right Ventricle: Normal size right ventricle. Left Atrium: The left atrium is normal in size. Right Atrium: The right atrium is normal in size. Mitral Valve: The mitral valve is normal in appearance and function. Trivial mitral valve regurgitation. Aortic Valve: The aortic valve is normal in appearance and function. Tricuspid Valve: The tricuspid valve is normal in appearance and function. Trivial tricuspid valve regurgitation. Pulmonic Valve: The pulmonic valve is normal in appearance and function. Trivial pulmonic valve regurgitation. Aorta: The aorta is normal. Pericardium: No pericardial effusion. Left side pleural effusion. (No Signature Object) Patient: VLADIMIR FELICIANO Study Date: 03/10/2017 Page 2 of 2 07:19 AM [id number]
[2017-03-10] MEDS ORDERED: LORazepam 2 MG/ML INJ ONE (14:27)
[2017-03-10] MEDS ORDERED: LORazepam 2 MG/ML INJ IV PRN (14:28)
[2017-03-10 14:36] VITALS: TEMP 99
[2017-03-10 14:38] VITALS: BP 119/61; PULSE 138; RESP 45; O2SAT 90
--- NOTE | 2017-03-10 15:10 | ASMTCMCOM ---
CM Note CM Note Notes: Patient will transfer to the [facility] for further care of Malaria. [facility] contacted and will arrive at [facility] between 3:30-4:00PM. Chart copied and sent w/[facility]. Patient has a bed on Medical ICU at . Date Signed: 03/10/2017 03:09 PM Electronically Signed By:Emliiana Barbour LCSW
--- NOTE | 2017-03-10 16:41 | ASDISCHSUM ---
Discharge Information Plan Status:Acute Transfer Medically Cleared to Leave:03/10/2017 Discharge Date:03/10/2017 03:36 PM CM D/C Disposition:[facility] ADT D/C Disposition:[facility] Projected Discharge Date:03/10/2017 04:00 PM Transportation at D/C:ALS/BLS Discharge Delay Reason: Follow-Up Date:03/10/2017 04:00 PM Discharge Slot:2 - 12:01 pm - 18:00 pm Final Diagnosis:Malaria Placement Information Patient Contact Information Contact Name:ZAC Relationship:Mother Address:[address] Work Phone: Prabhu:PRATIBHA Loya Phone: [facility] [address]/Zip Code:[place] [address] Email: Financial Information Financial Class:HMO and PPO Plans Primary Plan Desc:[employer] Primary Plan Number:[id number] Secondary Plan Desc: Secondary Plan Number: Assessment Information [facility] CM Progress Note CM Note CM Note Notes: Pt admitted with malaria, has recently been to [place]. D/W ELISEO. Clarice pt will dc home independantly when medically stable. CM available if dc needs arise. Date Signed: 03/09/2017 10:57 AM Electronically Signed By:Kary Chavira RN LACE LACRadha Length of stay for Answers: 1 day current admission Acuity / Level of Care Answers: Was the patient admitted to hospital via the emergency department? Yes: Emergency dept visits in Answers: 0 last 6 months Score: 4 Date Signed: 03/09/2017 11:15 AM Electronically Signed By:Kary Chavira RN [facility] CM Progress Note CM Note CM Note Notes: Patient will transfer to the [facility] for further care of Malaria. [facility] contacted and will arrive at [facility] between 3:30-4:00PM. Chart copied and sent w/[facility]. Patient has a bed on Medical ICU at . Date Signed: 03/10/2017 03:09 PM Electronically Signed By:Emiliana Barbour LCSW Intervention Information
== END 2017-03-10 15:36 | disposition short-term general hospital (02) | DRG 867 ==
LOC: OBSVTOIN 19:29 → F3N 20:20 → F2N 03-09 17:18
PROVIDERS: ADMIT Internal Medicine; ATTEND Hospitalist
PROC: 3E0337Z Introduction of Electrolytic and Water Balance Substance into Peripheral Vein, Percutaneous Approach (ICD-10-PCS; 2017-03-09)
PROC: 02HV33Z Insertion of Infusion Device into Superior Vena Cava, Percutaneous Approach (ICD-10-PCS; principal; 2017-03-10)
DX: B50.9 Plasmodium falciparum malaria, unspecified (principal); R65.11 Systemic inflammatory response syndrome (SIRS) of non-infectious origin with acute organ dysfunction; J96.01 Acute respiratory failure with hypoxia; J18.9 Pneumonia, unspecified organism; K72.90 Hepatic failure, unspecified without coma; R74.0 Nonspecific elevation of levels of transaminase and lactic acid dehydrogenase [LDH]; E80.6 Other disorders of bilirubin metabolism; D72.819 Decreased white blood cell count, unspecified; D69.6 Thrombocytopenia, unspecified; E87.6 Hypokalemia; E86.9 Volume depletion, unspecified; R16.1 Splenomegaly, not elsewhere classified; Z88.0 Allergy status to penicillin
CPT/HCPCS: 87798-90; 96374; C1751; J0696; J1170; J1885; J1940; J2060; J2405; J2550; J3475; P9047

== ENCOUNTER → 2017-03-26 | Outpatient (CLI) | payer OTHER | LOC: FIMAGING 13:59 | PROVIDERS: ATTEND Internal Medicine Infectious Disease | DX: R91.8 Other nonspecific abnormal finding of lung field (principal); B54 Unspecified malaria ==